=== PATIENT | male | born 1995 | race Caucasian/White ===

== ENCOUNTER 2017-06-21 07:55 | Emergency (ER) | payer OTHER, BC ==
[2017-06-21 08:18] VITALS: BP 137/84
--- NOTE | 2017-06-21 08:36 | EDM.PDOC ---
ED HPI GENERAL MEDICAL PROBLEM - General Chief Complaint: Lower Extremity Injury/Pain Stated Complaint: LEFT KNEE PAIN Time Seen by Provider: 06/21/17 08:25 - History of Present Illness INITIAL COMMENTS - FREE TEXT/NARRATIVE: HISTORY AND PHYSICAL: History of present illness: The patient is a healthy 22-year-old male who presents with persistent pain to his left knee that started 5 days ago after he fell on it at work. The patient says he slipped and fell directly on his knee and since that time has had discomfort. Initially it was not that bad and it seems to have worsened over the last few days. There is some swelling but it is not been excessive. He had no associated injuries or trauma and no distal neurovascular changes. He has no complaints of ankle or foot pain or hip pain proximally and no back or neck pain. The patient says when he is just sitting still there is really no discomfort when he ambulates and moves that there is more discomfort. The patient says he has not taken anything for the discomfort [id number]. He tells me that he did have a surgery on a nerve with removal of that nerve of the left leg in the past. Review of systems: As per history of present illness and below otherwise all systems reviewed and negative. Past medical history: As per history of present illness and as reviewed below otherwise noncontributory. Surgical history: As per history of present illness and as reviewed below otherwise noncontributory. Social history: No reported history of drug or alcohol abuse. Family history: As per history of present illness and as reviewed below otherwise noncontributory. Physical exam: General: Well-developed thin male who is nontoxic and vital signs were noted by me. HEENT: Atraumatic, normocephalic, negative for conjunctival pallor or scleral icterus, mucous membranes moist, throat clear, neck supple, nontender, trachea midline. No midline step-offs in his defects of the cervical spine Lungs: Clear to auscultation, breath sounds equal bilaterally, chest nontender. Heart: S1S2, regular rate and rhythm no overt murmurs Abdomen: Soft, nondistended, nontender. NABS Pelvis: Stable nontender. No lateral hip tenderness Genitourinary: Deferred. Rectal: Deferred. Extremities: Atraumatic throughout all extremities with the exception of the left knee with there is some mild soft tissue swelling and joint effusion appreciated but no ecchymosis warmth or erythema. There are no palpable bony deformities at the knee area and no discrete tenderness on palpation. The patient is able to range of motion slowly minimal discomfort. There is no distal tib-fib ankle or foot deformities or tenderness and no proximal thigh or hip tenderness or deformities., negative for cords or calf pain. Neurovascular unremarkable. Neuro: Awake, alert, oriented. Cranial nerves II through XII unremarkable. Cerebellum unremarkable. Motor and sensory unremarkable throughout. Exam nonfocal. Back: There are no midline step-offs in his defects of the thoracic or lumbar spine Diagnostics: X-ray left knee Therapeutics: Patient deferred pain medication, knee immobilizer and crutches Impression: Left knee strain contusion subacute Definitive disposition and diagnosis as appropriate pending reevaluation and review of above. left knee Pain Score (Numeric/FACES): 4 - Related Data Allergies Allergy/AdvReac Type Severity Reaction Status Date / Time No Known Allergies Allergy Verified 06/21/17 07:59 Home Meds: Home Meds . [No Known Home Meds] 06/21/17 [History] Past Medical History - Past Health History Medical/Surgical History: Denies Medical/Surgical History - Past Surgical History Musculoskeletal Surgical History: Reports: Other (See Below) Other Musculoskeletal Surgeries/Procedures:: right arm sx Social & Family History - Family History Family Medical History: Noncontributory - Tobacco Use Smoking Status *Q: Never Smoker - Caffeine Use Caffeine Use: Reports: Coffee - Recreational Drug Use Recreational Drug Use: No Review of Systems - Review of Systems Review Of Systems: ROS reveals no pertinent complaints other than HPI. ED EXAM, GENERAL - Physical Exam Exam: See Below (See dictation) Course - Vital Signs Last Recorded V/S: Last Vital Signs Temp 36.7 C 06/21/17 07:55 Pulse 71 06/21/17 07:55 Resp 18 06/21/17 07:55 BP 137/84 06/21/17 07:55 Pulse Ox 97 06/21/17 07:55 - Orders/Labs/Meds Orders: Active Orders 24 hr Category Date Time Status Knee 3V Lt [CR] Stat Exams 06/21/17 08:31 Taken DME for Discharge [COMM] Stat Oth 06/21/17 09:07 Ordered Departure - Departure Time of Disposition: 09:08 Disposition: Home, Self-Care 01 Condition: Good Clinical Impression: Contusion of knee, left Qualifiers: Encounter type: initial encounter Qualified Code(s): S80.02XA - Contusion of left knee, initial encounter Left knee sprain Qualifiers: Encounter type: initial encounter Involved ligament of knee: unspecified ligament Qualified Code(s): S83.92XA - Sprain of unspecified site of left knee, initial encounter - Discharge Information Referrals: PCP,None [Primary Care Provider] - Forms: ED Department Discharge Additional Instructions: The following information is given to patients seen in the emergency department who are being discharged to home. This information is to outline your options for follow-up care. We provide all patients seen in our emergency department with a follow-up referral. The need for follow-up, as well as the timing and circumstances, are variable depending upon the specifics of your emergency department visit. If you don't have a primary care physician on staff, we will provide you with a referral. We always advise you to contact your personal physician following an emergency department visit to inform them of the circumstance of the visit and for follow-up with them and/or the need for any referrals to a consulting specialist. The emergency department will also refer you to a specialist when appropriate. This referral assures that you have the opportunity for followup care with a specialist. All of these measure are taken in an effort to provide you with optimal care, which includes your followup. Under all circumstances we always encourage you to contact your private physician who remains a resource for coordinating your care. When calling for followup care, please make the office aware that this follow-up is from your recent emergency room visit. If for any reason you are refused follow-up, please contact the [facility] emergency department at and ask to speak to the emergency department charge nurse. [facility]--[place] [address] Ice and elevate the area and use the immobilizer crutches you have been given until you're seen by the orthopedic clinic. Please contact our clinic for further care and evaluation this week and return to ER as needed and as discussed. Use medications as needed and prescribed for pain. - My Orders Last 24 Hours: My Active Orders 06/21/17 08:31 Knee 3V Lt [CR] Stat 06/21/17 09:07 DME for Discharge [COMM] Stat - Assessment/Plan Last 24 Hours: My Active Orders 06/21/17 08:31 Knee 3V Lt [CR] Stat 06/21/17 09:07 DME for Discharge [COMM] Stat
--- NOTE | 2017-06-21 16:03 | CR ---
EXAM DATE: 06/21/17 PATIENT'S AGE: 22 Patient: GEOVANY VIEYRA Facility: [place], [place] Site . Site : 1995 Study: XRay Knee Left [id number] 9:01:49 AM Ordering Physician: Dallin Plata Final Report: INDICATION: Pain left knee. Fell last Wednesday and still hurting. Technique: Three views left knee. Findings: Surgical clips in the left proximal calf posteriorly. No acute fracture or dislocation in left knee. Moderate soft tissue swelling left knee anteriorly with extension into the distal thigh and infrapatellar region. Left knee otherwise negative. Dictated by Berto Boone MD @ Jun 21 2017 9:04AM (Electronic Signature) Report Signed by Proxy. AURY
== END 2017-06-21 09:31 | disposition home or self-care (01) ==
LOC: MW.ED 07:55
DX: S83.92XA Sprain of unspecified site of left knee, initial encounter (principal); S80.02XA Contusion of left knee, initial encounter; W01.0XXA Fall on same level from slipping, tripping and stumbling without subsequent striking against object, initial encounter
CPT/HCPCS: 73562-26-LT; 73562-LT; 99282; 99283